=== PATIENT | female | born 1985 | race Caucasian/White ===

== ENCOUNTER 2022-02-13 17:02 | Emergency (ER) | payer SELFPAY ==
--- NOTE | 2022-02-13 17:11 | PC.NURSE ---
Patient states she is leaving due to the wait and is going to my own hospital. Patient educated to return to ED if symptoms worsen or continue. Patient ambulated out of ED with a steady gait.
== END 2022-02-13 17:38 | disposition left against medical advice (07) ==
PROVIDERS: PCP Internal Medicine
DX: Z53.21 Procedure and treatment not carried out due to patient leaving prior to being seen by health care provider (principal)
CPT/HCPCS: 99199

== ENCOUNTER 2023-09-19 01:08 | Emergency (ER) | payer OTHER, SELFPAY ==
[2023-09-19 01:14] VITALS: BP 198/90; PULSE 110; RESP 20; TEMP 36.4; O2SAT 100
--- NOTE | 2023-09-19 01:41 | ED.EXTPRO ---
HPI - Extremity Problem General Chief complaint: Extremity Problem,Nontraumatic <Glenna Collado PA-C - Last Filed: 09/19/23 02:00> Stated complaint: left foot pain, no pulse?, hx of clots <Glenna Collado PA-C - Last Filed: 09/19/23 02:00> Time Seen by Provider: 09/19/23 01:26 <MARIA T Sigala Last Filed: 09/19/23 02:00> Source: patient <MARIA T Sigala Last Filed: 09/19/23 02:00> Mode of arrival: ambulatory <MARIA T Sigala Last Filed: 09/19/23 02:00> Limitations: no limitations <MARIA T Sigala Last Filed: 09/19/23 02:00> History of Present Illness HPI Narrative: This is a 37-year-old female that presents to the emergency department for left leg pain. Reports she has had worsening claudication over the last several months. It has acutely worsened over the last couple of weeks. Today she was standing for a prolonged period of time. Over the last couple of hours her left foot has become numb and is tingling. Her foot feels cold. She is having pain in the calf and foot. 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 Has had stents placed last year with [facility] vascular. Denies decreased ROM. <Glenna Collado PA-C - Last Filed: 09/19/23 02:00> Related Data Home medications: Home Medications Medication Instructions Recorded Confirmed amlodipine 10 mg tablet 10 mg PO DAILY 09/26/21 09/26/21 losartan 100 mg tablet 100 mg PO DAILY 09/26/21 09/26/21 semaglutide 1 mg/dose (2 mg/1.5 1 mg subcut WEEKLY 09/26/21 09/26/21 mL) subcutaneous pen injector (Ozempic) <MARIA T Sigala Last Filed: 09/19/23 02:00> Allergies/Adverse reactions: Allergies Allergy/AdvReac Type Severity Reaction Status Date / Time No Known Allergies Allergy Unverified 09/26/21 09:35 <Glenna Collado PA-C - Last Filed: 09/19/23 02:00> Review of Systems Review of Systems: CONSTITUTIONAL: Denies fever MUSCULOSKELETAL: Reports myalgia. NEUROLOGIC: Reports numbness. Denies weakness. <Glenna Collado PA-C - Last Filed: 09/19/23 02:00> All systems reviewed & are unremarkable except as noted in HPI and below <Glenna Collado PA-C - Last Filed: 09/19/23 02:00> PMFSH Past Medical History Medical History: Medical History (Updated 09/19/23 @ 01:54 by Glenna Collado PA-C) Diabetes Hernia surgery x 3 Hypertension PAC (premature atrial contraction) <Glenna Collado PA-C - Last Filed: 09/19/23 02:00> Surgical History Surgical History: Surgical History (Updated 09/26/21 @ 09:33 by Shayy Bruno [facility]) Delivery by section (09/16/05) H/O oophorectomy <Glenna Collado PA-C - Last Filed: 09/19/23 02:00> Family History Family History: Family History (Updated 11/26/09 @ 08:27 by DOCTOR UNKNOWN) Other Diabetes mellitus <Glenna Collado PA-C - Last Filed: 09/19/23 02:00> Social History Social History: Social History (Updated 09/26/21 @ 09:34 by Shayy Bruno [facility]) Smoking packs per day: 1 Smoking cigarettes per day: 20.0 Smoking status: Former smoker Tobacco type: cigarettes Alcohol intake: current Drinks per week: 2 Substance use: never Substance use type: does not use Living arrangements: other Additional living arrangements comments: single/ same partner for 7 years ( male) Occupation/Education: occupation Additional occupation/education comments: RN Gender identity (if verbalized by the patient): Female Sexual Orientation (if Verbalized by the Patient): Bisexual <Glenna Collado PA-C - Last Filed: 09/19/23 02:00> Exam Narrative: GENERAL: Well-appearing, well-nourished, and in no acute distress. HEAD: Normocephalic, atraumatic. EYES: EOMI. CHEST: No respiratory distress. HEART: Tachycardic EXTREMITIES: Normal range of motion. Left foot is cold. Unable to palpate any pulses in the left foot. Able to doppler faint left PT pulse SKIN
--- NOTE | 2023-09-19 01:52 | PC.NURSE ---
Patient informs EDP that she wants to sign out AMA and go to a different hospital with vascular. EDP fills out AMA form. Patient signs with understanding of risks, possible deterioration in condition, including or loss of limb.
== END 2023-09-19 01:54 | disposition left against medical advice (07) ==
LOC: ANHED 01:43
PROVIDERS: Emergency Provider Physician Assistant; PCP Internal Medicine
DX: I73.9 Peripheral vascular disease, unspecified (principal); I10 Essential (primary) hypertension; E11.9 Type 2 diabetes mellitus without complications; Z95.820 Peripheral vascular angioplasty status with implants and grafts; Z87.891 Personal history of nicotine dependence; Z79.85 Long-term (current) use of injectable non-insulin antidiabetic drugs; Z79.899 Other long term (current) drug therapy
CPT/HCPCS: 99281